=== PATIENT | female | born 1960 | race Caucasian/White ===

== ENCOUNTER 2021-01-18 12:34 | Emergency (ER) | payer MEDICARE, OTHER ==
[~2021-01-18] VITALS: Ht 152.4 cm; Wt 40.8 kg
[2021-01-18] MEDS ORDERED: FLUO20CA42 PO (12:47)
[2021-01-18] MEDS ORDERED: GABA-532 PO (12:47)
[2021-01-18] MEDS ORDERED: ACET-868 PO (12:47)
[2021-01-18] MEDS ORDERED: DOCU-141 PO (12:47)
[2021-01-18] MEDS ORDERED: TRAZ-182 PO (12:47)
[2021-01-18] MEDS ORDERED: OMEP20CA15 PO (12:47)
[2021-01-18] MEDS ORDERED: SENN-261 PO (12:47)
[2021-01-18] MEDS ORDERED: CLON1TAB12 PO (12:47)
[2021-01-18] MEDS ORDERED: MECL-159 PO (12:47)
[2021-01-18] MEDS ORDERED: MAGN400O6 PO (12:47)
[2021-01-18 13:30] LABS: BASOPHILS % (AUTO) 0.6 % (0.0-2.0); EOSINOPHILS % (AUTO) 0.8 % (0.0-6.0); HEMATOCRIT 36 % (33-45); HEMOGLOBIN 11.8 g/dL (11.5-14.8); LYMPHOCYTES # (AUTO) 2.1 /CMM (0.8-4.8); MEAN CORPUSCULAR HGB CONC 33 g/dl (31.0-36.0); MEAN CORPUSCULAR VOLUME 88 fL (82-100); MONOCYTES # (AUTO) 0.2 /CMM (0.1-1.30); MONOCYTES % (AUTO) 6.7 % (2.0-12.0); NEUTROPHILS # (AUTO) 1.3 /CMM (1.8-8.9); NEUTROPHILS % (AUTO) 34.9 % (43.0-81.0); PLATELET COUNT (AUTO) 195 /CMM (150-450); RED BLOOD CELL COUNT(AUTO) 4.06 MIL/uL (4.0-5.2); WHITE BLOOD COUNT (AUTO) 3.6 K/uL (4.3-11.0)
[2021-01-18] MEDS ORDERED: IV NS 0.9% 500 ML BAG IV ONE (13:30)
--- NOTE | 2021-01-18 13:31 | NUR ---
KIET RAMÍREZ FROM [facility] C/O PROGRESSIVE GEN WEAKNESS FOR 1 MONTH. PT AAOX4, VSS. RR EVEN & UNLABORED. DENIES CP, SOB, N/V AT THIS TIME. PT SEEN & EVAL'D BY DR. BYNUM. PLACED ON [employer], SR. WILL CONT TO MONITOR.
[2021-01-18 13:39] LABS: CALCIUM, SERUM 8.5 mg/dL (8.5-10.1); CARBON DIOXIDE 27 mmol/L (21-32); CHLORIDE 96 mmol/L (98-107); CREATININE 0.6 mg/dL (0.6-1.3); GLUCOSE 78 mg/dL (74-106); POTASSIUM 3.9 mmol/L (3.5-5.1); SODIUM SERUM 132 mmol/L (136-145); UREA NITROGEN, BLOOD 9 mg/dL (7-18)
[2021-01-18 13:45] LABS: ALANINE AMINOTRANSFERASE 18 U/L (12-78); ALBUMIN 3.7 g/dL (3.4-5.0); ALKALINE PHOSPHATASE 62 U/L (46-116); ASPARTATE AMINOTRANSFERASE 19 U/L (15-37); BILIRUBIN,DIRECT 0.1 mg/dL (0.0-0.2); BILIRUBIN,TOTAL 0.3 mg/dL (0.2-1.0)
[2021-01-18 14:15] LABS: BILIRUBIN,URINE Negative (NEGATIVE); COLOR,URINE YELLOW (YELLOW); LEUKOCYTE ESTERASE ,URINE Small (NEGATIVE); NITRITE, URINE Negative (NEGATIVE); PH,URINE 8.5 (5.0-8.0); PROTEIN,URINE Negative (NEGATIVE); UGLUCOSE Negative (NEGATIVE); UROBILINOGEN,URINE 0.2 EU/dL (0.2)
[2021-01-18 14:28] LABS: BACTERIA,URINE None seen /HPF (None Seen); RBC,URINE 0-2 /HPF (0-2); SQUAMOUS EPITHELIAL CELL,UR Few /HPF (None Seen)
[2021-01-18 15:16] LABS: EOSINOPHILS % (MANUAL) 2 % (0-4); LYMPHOCYTES % (MANUAL) 55 % (16-48); MONOCYTES % (MANUAL) 2 % (0-11.0); NEUTROPHILS % (MANUAL) 41 (42-76)
--- NOTE | 2021-01-18 15:27 | NUR ---
CALLED [facility] ETA 30 MINS.
[2021-01-18] MEDS ORDERED: CEPH500C2 PO (15:33)
[2021-01-18 16:17] VITALS: BP 114/76
--- NOTE | 2021-01-18 16:17 | NUR ---
Patient discharged to home in stable condition. Written and verbal after care instructions given. Patient verbalizes understanding of instruction.
== END 2021-01-18 16:18 | disposition home or self-care (01) ==
LOC: ER 12:42
DX: R53.83 Other fatigue (principal); R42 Dizziness and giddiness; N39.0 Urinary tract infection, site not specified; J44.9 Chronic obstructive pulmonary disease, unspecified; G62.9 Polyneuropathy, unspecified; F32.9 Major depressive disorder, single episode, unspecified; F41.9 Anxiety disorder, unspecified; Z79.899 Other long term (current) drug therapy
CPT/HCPCS: 36415; 71045; 80048; 80076; 81001; 83880; 84484; 85007; 85025; 85730; 87086; 93005; 99285; J7040

== ENCOUNTER 2021-05-29 14:03 | Inpatient (IN) | payer MEDICARE, OTHER ==
[~2021-05-29] VITALS: Ht 152.4 cm; Wt 37.8 kg
[2021-05-29] VITALS (12 sets, daily range): BP systolic 104–126; BP diastolic 32–82
[~2021-05-29 14:03] MED LIST: ACET-868 PO; CEPH500C2 PO; CLON1TAB12 PO; DOCU-141 PO; FLUO20CA42 PO; GABA-532 PO; MAGN400O6 PO; MECL-159 PO; OMEP20CA15 PO; SENN-261 PO; TRAZ-182 PO
--- NOTE | 2021-05-29 14:38 | NUR ---
THE PATIENT IS TAKEN TO CT
[2021-05-29 15:01] LABS: BASOPHILS % (AUTO) 0.7 % (0.0-2.0); HEMATOCRIT 32 % (33-45); HEMOGLOBIN 10.7 g/dL (11.5-14.8); LYMPHOCYTES # (AUTO) 0.3 K/uL (0.8-4.8); LYMPHOCYTES % (AUTO) 23.6 % (20.0-44.0); MEAN CORPUSCULAR HGB CONC 33 g/dl (31.0-36.0); MEAN CORPUSCULAR VOLUME 90 fL (82-100); MONOCYTES # (AUTO) 0.1 K/uL (0.1-1.30); MONOCYTES % (AUTO) 5.5 % (2.0-12.0); NEUTROPHILS % (AUTO) 70.2 % (43.0-81.0); PLATELET COUNT (AUTO) 191 K/uL (150-450); RED BLOOD CELL COUNT(AUTO) 3.57 MIL/uL (4.0-5.2)
[2021-05-29 15:02] LABS: WHITE BLOOD COUNT (AUTO) 1.4 K/uL (4.3-11.0)
[2021-05-29 15:17] LABS: ALANINE AMINOTRANSFERASE 22 U/L (12-78); ALBUMIN 2.9 g/dL (3.4-5.0); ALKALINE PHOSPHATASE 30 U/L (46-116); ASPARTATE AMINOTRANSFERASE 21 U/L (15-37); BILIRUBIN,DIRECT 0.1 mg/dL (0.0-0.2); BILIRUBIN,TOTAL 0.4 mg/dL (0.2-1.0); CALCIUM, SERUM 8.1 mg/dL (8.5-10.1); CARBON DIOXIDE 24 mmol/L (21-32); CHLORIDE 102 mmol/L (98-107); CREATININE 1.1 mg/dL (0.6-1.3); GLUCOSE 92 mg/dL (74-106); LIPASE 64 U/L (73-393); POTASSIUM 4.2 mmol/L (3.5-5.1); SODIUM SERUM 136 mmol/L (136-145); UREA NITROGEN, BLOOD 24 mg/dL (7-18)
--- NOTE | 2021-05-29 15:49 | NUR ---
71/[address] BECKWITH MADE AWARE WITH NO NEW ORDERS.
[2021-05-29 16:23] LABS: BAND % (MANUAL) 8 % (0.0-5.0); LYMPHOCYTES % (MANUAL) 24 % (16-48); MONOCYTES % (MANUAL) 4 % (0-11.0); NEUTROPHILS % (MANUAL) 64 (42-76)
[2021-05-29] MEDS ORDERED: AZITHROMYCIN 500 MG in IV D5W 250 ML IV ONE (16:30)
[2021-05-29] MEDS ORDERED: IV NS 0.9% 1,000 ML BAG IV ONE ×2 (16:30)
[2021-05-29] MEDS ORDERED: CEFTRIAXONE 1GM BAG (ER ONLY) 50 ML IV ONE ×2 (16:30→17:14)
[2021-05-29] MEDS ORDERED: PETR113O TP (16:38)
[2021-05-29] MEDS ORDERED: MUPI22OI2 TP (16:38)
[2021-05-29] MEDS ORDERED: PARO20TA7 PO (16:38)
[2021-05-29] MEDS ORDERED: CETI-108 PO (16:38)
--- NOTE | 2021-05-29 17:00 | NUR ---
COVID SWAB DONE AND SENT TO THE LAB
--- NOTE | 2021-05-29 17:05 | NUR ---
[facility] - Dr. Ricks paged via exchange
[2021-05-29] MEDS ORDERED: MAG HYDROX/AL HYDROX/SIMETH 30 ML UDC PO PRN (18:00)
[2021-05-29] MEDS ORDERED: NOREPINEPHRINE 8 MG in IV NS 0.9% 242 ML IV PRN ×2 (18:00→21:00)
[2021-05-29] MEDS ORDERED: MAGNESIUM HYDROXIDE 30 ML UDC PO PRN (18:00)
[2021-05-29] MEDS ORDERED: Z GUARD REMEDY 2 OZ OINT TP PRN (18:00)
--- NOTE | 2021-05-29 18:04 | NUR ---
PICC LINE NURSE AT THE BEDSIDE
--- NOTE | 2021-05-29 18:25 | NUR ---
X-RAY TECH AT THE BEDSIDE
[2021-05-29] MEDS ORDERED: VANCOMYCIN 500 MG in IV D5W 100 ML IV SCH (19:00)
--- NOTE | 2021-05-29 19:17 | NUR ---
REPORT GIVEN NURSE MARYAM FOR DULCE MARIA
--- NOTE | 2021-05-29 20:35 | NUR ---
REPORT GIVEN TO RAOUL @ ICU. 256
--- NOTE | 2021-05-29 20:45 | NUR ---
PCR COLLECTED AND SENT TO LAB
--- NOTE | 2021-05-29 21:00 | NUR ---
RN ADMITTING NOTE RECEIVED PATIENT FROM ER VIA GURNEY ACCOMPANIED BY 2 ER STAFF AND TRANSFERRED TO BED 256 VIA 2 PERSON ASSIST. PT IS AO X 4, IN NO SIGN OF ACUTE DISTRESS, RESPIRATIONS EVEN AND UNLABORED, SATURATION AT 95% ON 3L VIA NC. COMPREHENSIVE PHYSICAL ASSESSMENT AND PATIENT CARE DONE. SCABS/REDNESS NOTED AT B EARS NOTED PATIENT SCRATCHING THEM, PHOTOS TAKEN, PLACED IN CHART AND WOUND CONSULT REQUESTED. NOTED IV LINE AT RAC 20G, AND PATO PICC LINE. PATENT AND FLUSHING WELL, NO S/S OF INFECTION OR INFILTRATION NOTED. SAFETY MEASURES AND ISOLATION PRECAUTION IN PLACE, CALL LIGHT WITHIN REACH OF PATIENT, BED ON LOWEST POSITION, SIDE RAILS UP X 2. APPROPRIATE ISOLATION MAINTAINED. WILL CONTINUE MONITOR AND ASSESS THROUGHOUT THE SHIFT. WILL CARRY OUT MD ORDERS ACCORDINGLY. LOAN COLLECTOR MADE AWARE.
--- NOTE | 2021-05-29 21:05 | NUR ---
PATIENT TRANSFERRED UNDER ACLS
[2021-05-29] MEDS: IV NS 0.9% 1,000 ML IV PRN (21:09)
[2021-05-29] MEDS: MEROPENEM 1 G in IV NS 0.9% 100 ML IV SCH (21:15)
[2021-05-29] MEDS: ENOXAPARIN SODIUM 40 MG/0.4 ML DISP.SYRIN SQ SCH (21:24)
[2021-05-29] MEDS: ZOLPIDEM TARTRATE 5 MG TABLET PO PRN (21:44)
[2021-05-29] MEDS: ACETAMINOPHEN 325 MG TABLET PO PRN (22:59)
[2021-05-30] VITALS (98 sets, daily range): BP systolic 35–156; BP diastolic 18–99
[2021-05-30 02:09] LABS: BILIRUBIN,URINE NEGATIVE (NEGATIVE); COLOR,URINE YELLOW (YELLOW); LEUKOCYTE ESTERASE ,URINE NEGATIVE (NEGATIVE); NITRITE, URINE NEGATIVE (NEGATIVE); PH,URINE 6.5 (5.0-8.0); PROTEIN,URINE TRACE mg/dl (NEGATIVE); UGLUCOSE NEGATIVE (NEGATIVE); UROBILINOGEN,URINE 0.2 EU/dL (0.2)
[2021-05-30 04:33] LABS: BASOPHILS % (AUTO) 0.5 % (0.0-2.0); HEMATOCRIT 29 % (33-45); HEMOGLOBIN 9.8 g/dL (11.5-14.8); LYMPHOCYTES # (AUTO) 1.7 K/uL (0.8-4.8); LYMPHOCYTES % (AUTO) 19.8 % (20.0-44.0); MEAN CORPUSCULAR HGB CONC 34 g/dl (31.0-36.0); MEAN CORPUSCULAR VOLUME 90 fL (82-100); MONOCYTES # (AUTO) 0.2 K/uL (0.1-1.30); MONOCYTES % (AUTO) 2.4 % (2.0-12.0); NEUTROPHILS # (AUTO) 6.5 K/uL (1.8-8.9); NEUTROPHILS % (AUTO) 77.3 % (43.0-81.0); PLATELET COUNT (AUTO) 156 K/uL (150-450); RED BLOOD CELL COUNT(AUTO) 3.18 MIL/uL (4.0-5.2); WHITE BLOOD COUNT (AUTO) 8.4 K/uL (4.3-11.0)
[2021-05-30 04:55] LABS: CREATININE 0.5 mg/dL (0.6-1.3); MAGNESIUM 2.1 mg/dL (1.8-2.4); PHOSPHORUS 1.9 mg/dL (2.5-4.9); POTASSIUM 3.8 mmol/L (3.5-5.1)
[2021-05-30 05:14] LABS: THYROID STIMULATING HORMONE 0.348 uIU/mL (0.358-3.74)
[2021-05-30 06:22] LABS: BACTERIA,URINE None seen /HPF (None Seen); RBC,URINE 0-2 /HPF (0-2); SQUAMOUS EPITHELIAL CELL,UR Few /HPF (None Seen); WBC,URINE 0-2 /HPF (0-3)
[2021-05-30 06:23] LABS: MUCUS,URINE Few /LPF (None Seen)
[2021-05-30] MEDS: NOREPINEPHRINE 8 MG in IV NS 0.9% 242 ML IV PRN ×2 (06:25→12:14)
[2021-05-30] MEDS: ACETAMINOPHEN 325 MG TABLET PO PRN ×3 (06:49→20:06)
--- NOTE | 2021-05-30 07:30 | NUR ---
OPENING NOTE: REPORT RECEIVED FROM RAOUL HUTTON. PT ALERT OX3, USES BED VÁSQUEZ. LEVOPHED INFUSING PER MD ORDERS. PT CHECKED ON HOURLY AND PRN BY NURSING STAFF.
--- NOTE | 2021-05-30 07:59 | NUR ---
WOUND CARE CONSULT: REVIEWED CHART, NURSING DOCUMENTATION AND PHOTOS WHICH INDICATE DRY SCABS/LESIONS TO BILATERAL EARS, PRESENT ON ADMISSION. DEFER TO PMD FOR LESIONS. PER RN, PT IS UNCOOPERATIVE AT TIMES AND SCRATCHES AT HER EARS. WILL SEE PRN. CURRENT HILDA SCORE IS 19.
[2021-05-30] MEDS ORDERED: PANTOPRAZOLE 40 MG VIAL IV SCH (09:00)
[2021-05-30] MEDS: MEROPENEM 1 G in IV NS 0.9% 100 ML IV SCH ×2 (09:03→21:00)
[2021-05-30] MEDS: GABAPENTIN 100 MG CAPSULE PO SCH ×2 (09:04→17:09)
[2021-05-30] MEDS: PAROXETINE HCL 20 MG TABLET PO SCH (09:04)
[2021-05-30] MEDS ORDERED: K PHOS NEUTRAL 250 MG TABLET PO ONE (11:00)
[2021-05-30] MEDS ORDERED: VANCOMYCIN 500 MG in IV D5W 100 ML IV SCH (12:00)
[2021-05-30] MEDS: IV NS 0.9% 1,000 ML IV PRN (12:39)
[2021-05-30] MEDS: ONDANSETRON HCL/PF 4 MG/2 ML VIAL IVP PRN (13:28)
[2021-05-30] MEDS ORDERED: clonazePAM 1 MG TABLET PO SCH (13:30)
[2021-05-30] MEDS ORDERED: clonazePAM 1 MG TABLET PO PRN (13:30)
--- NOTE | 2021-05-30 18:04 | NUR ---
END OF SHIFT NOTE: PT USED THE BEDPAN SEVERAL TIMES THIS SHIFT. 3 SMALL FORMED BMS, URINATED X7. PT REFUSED TO EAT MORE THAN A FEW BITES OF EACH MEAL, AFTER EATING PT STATED TO RN THAT SHE ATE WAY TOO MUCH AND WILL PROBABLY GAIN 10 POUNDS. PT STATED THAT SHE HAS AN EATING DISORDER AND USUALLY BINGES HER MEALS THAN HAS TO BRUSH HER TEETH TO GET THE FOOD TASTE OUT OF HER MOUTH. PT BRUSHED HER TEETH 3 TIMES DURING THIS SHIFT. AT LUNCH PT ATE 1 PACKAGE OF COOPER CRACKERS THEN STATED SHE ATE TOO MUCH AND HAD BINGED. PT ATE NONE OF HER LUNCH TRAY FOOD. LEVOPHED TITRATED DOWN TO 0.06 MCG/KG/MIN THIS SHIFT. PT CHECKED ON HOURLY AND PRN BY NURSING STAFF.
--- NOTE | 2021-05-30 19:00 | NUR ---
RN NOTE RECEIVED PATIENT IN BED, AO X 4, IN NO S/SX OF ACUTE DISTRESS AT THIS TIME. PT KEEPS REMOVING NASAL CANNULA, PREVIOUSLY ON 2LPM, SATURATION 95% ON ROOM AIR, SR ON THE MONITOR, HR IS 87. NOTED IV SITE AT R AC 20G, AND PATO PICC LINE, ALL HUBS PATENT AND FLUSHING WELL, NO S/S OF INFECTION, PICC LINE DRESSING SLIGHTY SATURATED WITH BLOOD. PATIENT IS CONTINENT AND USES BEDPAN. SAFETY MEASURES IMPLEMENTED. PATIENT BED ALARM IS ON. HEAD OF BED ELEVATED. BED IS LOCKED, IN LOWEST POSITION AND SIDE RAILS UP. CALL LIGHT WITHIN REACH OF THE PATIENT. WILL CONTINUE TO MONITOR AND REASSESS FOR ANY CHANGES. Addendum: 05/30/21 at 2143 by RAOUL ARNETT RN IV FLUID OF NS INFUSING AT 75 ML/HR, AND LEVOPHED DRIP CURRENTLY AT 0.06 MCG/KG/MIN.
[2021-05-30] MEDS: clonazePAM 1 MG TABLET PO SCH (21:01)
[2021-05-30] MEDS: ENOXAPARIN SODIUM 40 MG/0.4 ML DISP.SYRIN SQ SCH (21:01)
[2021-05-30] MEDS: ZOLPIDEM TARTRATE 5 MG TABLET PO PRN (23:01)
[2021-05-31] VITALS (60 sets, daily range): BP systolic 86–153; BP diastolic 55–102
[2021-05-31] MEDS: IV NS 0.9% 1,000 ML IV PRN ×2 (03:04→17:15)
--- NOTE | 2021-05-31 07:30 | NUR ---
OPENING NOTE: REPORT RECEIVED FROM RAOUL HUTTON. PER REPORT LEVOPHED STOPPED AT 0630 THIS AM. NO CHANGE IN PATIENT FROM YESTERDAY. PT ALERT OX3. USES BED VÁSQUEZ FREQUENTLY . PT WILL USE COMMODE TODAY. PT CHECKED ON HOURLY AND PRN BY NURSING STAFF.
[2021-05-31] MEDS: GABAPENTIN 100 MG CAPSULE PO SCH ×2 (08:43→17:15)
[2021-05-31] MEDS: PANTOPRAZOLE 40 MG TABLET.DR PO SCH (08:43)
[2021-05-31] MEDS: MEROPENEM 1 G in IV NS 0.9% 100 ML IV SCH ×2 (08:43→20:24)
[2021-05-31] MEDS: ONDANSETRON HCL/PF 4 MG/2 ML VIAL IVP PRN (08:43)
[2021-05-31] MEDS: PAROXETINE HCL 20 MG TABLET PO SCH (08:44)
[2021-05-31] MEDS: clonazePAM 1 MG TABLET PO SCH ×2 (08:44→17:15)
[2021-05-31] MEDS: ACETAMINOPHEN 325 MG TABLET PO PRN (08:44)
[2021-05-31 09:58] LABS: CALCIUM, SERUM 7.4 mg/dL (8.5-10.1); CREATININE 0.4 mg/dL (0.6-1.3); MAGNESIUM 1.9 mg/dL (1.8-2.4); PHOSPHORUS 2.2 mg/dL (2.5-4.9); POTASSIUM 3.2 mmol/L (3.5-5.1)
[2021-05-31] MEDS ORDERED: K PHOS NEUTRAL 250 MG TABLET PO ONE (16:00)
[2021-05-31] MEDS: POTASSIUM CHLORIDE 20 MEQ TAB.PRT.SR PO SCH ×2 (17:15→17:16)
--- NOTE | 2021-05-31 18:30 | NUR ---
END OF SHIFT: PT WAS UP TO THE COMMODE FREQUENTLY. PT ATE ONLY BITES OF FOOD TODAY, MOSTLY CRACKERS. PT STATED SHE ATE MORE FOOD BUT RN WOULD FIND THE FOOD IN HER BED. LEVOPHED CONTINUES TO BE OFF. PT HAS TRANSFER ORDERS TO MED/SURG, NO BED OF THIS TIME. PT CHECKED ON HOURLY AND PRN BY NURSING STAFF.
[2021-05-31] MEDS: ZOLPIDEM TARTRATE 5 MG TABLET PO PRN (20:24)
[2021-05-31] MEDS: ENOXAPARIN SODIUM 40 MG/0.4 ML DISP.SYRIN SQ SCH (20:28)
[2021-06-01] VITALS (14 sets, daily range): BP systolic 102–129; BP diastolic 51–85
--- NOTE | 2021-06-01 03:36 | NUR ---
RN notes: beginning of shift Received patient in bed resting comfortably in bed watching tv. Alert and oriented, verbally able to verbally communicate needs. On room air tolerating well with no distress noted. Breathing even and unlabored. Ambulatory with assist. Continent of bowel and bladder function. Vital signs wnl. Will continue to monitor.
--- NOTE | 2021-06-01 03:44 | NUR ---
RN notes: end of shift No significant change of condition. Bowel movement x 2. Vital signs wnl. Ambien given as requested by the patient. Kept clean and comfortable. Will endorse to next shift for continuity of care.
--- NOTE | 2021-06-01 05:40 | NUR ---
RN ms opening notes Received Pt from ICU nurse ANNI Dodson. Pt arrived at the unit with a gurney. Pt is alert and orientedX4. Respiration is normal in room air. VS is stable. no S/S of distress. No SOB. Pt is able to ambulate with a steady gait with assist. PICC line at PATO is clean, intact and dry. RAC# 20 is clean, intact and flushes well. Reorient Pt to the room and the use of call light. Pt verbalized understanding. safety precautions is maintained. Bed at low position, brakes locked, side rails upX3, call light is within reach. Will endorse to morning nurse for DULCE MARIA.
[2021-06-01 05:59] LABS: BASOPHILS % (AUTO) 0.1 % (0.0-2.0); EOSINOPHILS % (AUTO) 0.1 % (0.0-6.0); HEMATOCRIT 30 % (33-45); HEMOGLOBIN 10.4 g/dL (11.5-14.8); LYMPHOCYTES # (AUTO) 1.1 K/uL (0.8-4.8); LYMPHOCYTES % (AUTO) 9.2 % (20.0-44.0); MEAN CORPUSCULAR HGB CONC 34 g/dl (31.0-36.0); MEAN CORPUSCULAR VOLUME 88 fL (82-100); MONOCYTES # (AUTO) 0.2 K/uL (0.1-1.30); MONOCYTES % (AUTO) 1.6 % (2.0-12.0); NEUTROPHILS # (AUTO) 10.7 K/uL (1.8-8.9); PLATELET COUNT (AUTO) 185 K/uL (150-450); RED BLOOD CELL COUNT(AUTO) 3.45 MIL/uL (4.0-5.2)
--- NOTE | 2021-06-01 06:05 | NUR ---
RN notes: transferred to [facility] in stable condition. Endorsement given to ANNI Rob
[2021-06-01 06:10] LABS: ALBUMIN 2.1 g/dL (3.4-5.0); BILIRUBIN,TOTAL 0.3 mg/dL (0.2-1.0); CALCIUM, SERUM 7.5 mg/dL (8.5-10.1); CREATININE 0.5 mg/dL (0.6-1.3); MAGNESIUM 1.9 mg/dL (1.8-2.4); PHOSPHORUS 2.1 mg/dL (2.5-4.9); POTASSIUM 3.3 mmol/L (3.5-5.1); TOTAL PROTEIN, SERUM 5.6 g/dL (6.4-8.2)
--- NOTE | 2021-06-01 07:50 | NUR ---
RN OPENING NOTE- PT IS ALERT ORIENTED TO PERSON PLACE TIME PURPOSE. PICC LINE TO PATO. PT DENIES PAIN AT PRESENT. MAKES NEEDS KNOWN. VS STABLE. SATURATION 98% ROOM AIR. NO DISTRESS. REQUESTED FOOD AND COFFEE, SIDE RAILS UP, BED LOCKED, CALL LIGHT CLOSE. ASSIST AND MONITOR
[2021-06-01] MEDS: PAROXETINE HCL 20 MG TABLET PO SCH (08:25)
[2021-06-01] MEDS: PANTOPRAZOLE 40 MG TABLET.DR PO SCH (08:25)
[2021-06-01] MEDS: GABAPENTIN 100 MG CAPSULE PO SCH ×2 (08:25→16:16)
[2021-06-01] MEDS: clonazePAM 1 MG TABLET PO SCH ×2 (08:25→16:16)
[2021-06-01] MEDS: MEROPENEM 1 G in IV NS 0.9% 100 ML IV SCH ×2 (08:51→21:44)
[2021-06-01] MEDS ORDERED: POTASSIUM CHLORIDE 20 MEQ TAB.PRT.SR PO SCH (10:00)
[2021-06-01 12:20] LABS: LYMPHOCYTES % (MANUAL) 10 % (16-48); METAMYELOCYTES % 1 % (0-0); MONOCYTES % (MANUAL) 2 % (0-11.0); MYELOCYTES % 1 % (0-0); NEUTROPHILS % (MANUAL) 86 (42-76)
[2021-06-01] MEDS ORDERED: K PHOS NEUTRAL 250 MG TABLET PO ONE (15:30)
[2021-06-01] MEDS ORDERED: IV NS 0.9% 250 ML IV ONE (15:43)
[2021-06-01] MEDS ORDERED: IOHEXOL-300 100 ML VIAL IV ONE (15:43)
[2021-06-01] MEDS ORDERED: CT SWABBABLE VALVE TRANS SET 1 EA INFUS.SET MC ONE (15:43)
--- NOTE | 2021-06-01 18:56 | NUR ---
RN CLOSING NOTE- PT IS ALERT ORIENTED TO PERSON PLACE TIME PURPOSE. PICC LINE TO PATO. PT DENIES PAIN AT PRESENT. MAKES NEEDS KNOWN. VS STABLE. SATURATION 98% ROOM AIR. NO DISTRESS. CT ABD COMPLETED, SIDE RAILS UP, BED LOCKED, CALL LIGHT CLOSE. ASSIST AND MONITOR
[2021-06-01] MEDS: ZOLPIDEM TARTRATE 5 MG TABLET PO PRN (21:44)
[2021-06-01] MEDS: ENOXAPARIN SODIUM 40 MG/0.4 ML DISP.SYRIN SQ SCH (21:46)
--- NOTE | 2021-06-02 02:00 | NUR ---
Patient refusing to be reconnected to IV fluids at this time, but tolerated IV abx well.
--- NOTE | 2021-06-02 04:55 | NUR ---
Patient back and forth to bathroom feeling "sick" to her stomach but unable to produce stool specimen -urine only.
--- NOTE | 2021-06-02 04:57 | NUR ---
Patient has been A&Ox4. Sleeping intermittently though easy to wake. Reports feeling fatigued though steady on feet. Denies SOB, dizziness, lightheadedness. Tolerating IV ABX well. Still refusing to be reattached to IVF. No signs of distress.
[2021-06-02] MEDS: ACETAMINOPHEN 325 MG TABLET PO PRN (06:16)
--- NOTE | 2021-06-02 06:18 | NUR ---
patient had small formed bm
[2021-06-02] MEDS: PANTOPRAZOLE 40 MG TABLET.DR PO SCH (06:30)
--- NOTE | 2021-06-02 07:30 | NUR ---
PT RECEIVED RESTING COMFORTABLY IN BED. NO S/S OR C/O PAIN OR DISTRESS NOTED. SIDE RAILS UP X2, CALL LIGHT LEFT WITHIN REACH. WILL CONTINUE PLAN OF CARE.
[2021-06-02 07:33] LABS: CALCIUM, SERUM 7.5 mg/dL (8.5-10.1); CREATININE 0.4 mg/dL (0.6-1.3); MAGNESIUM 1.7 mg/dL (1.8-2.4); PHOSPHORUS 2.5 mg/dL (2.5-4.9); POTASSIUM 3.2 mmol/L (3.5-5.1)
[2021-06-02 07:51] LABS: BASOPHILS % (AUTO) 0.2 % (0.0-2.0); EOSINOPHILS % (AUTO) 0.6 % (0.0-6.0); HEMATOCRIT 27 % (33-45); HEMOGLOBIN 9.4 g/dL (11.5-14.8); LYMPHOCYTES # (AUTO) 1.6 K/uL (0.8-4.8); LYMPHOCYTES % (AUTO) 18.7 % (20.0-44.0); MEAN CORPUSCULAR HGB CONC 35 g/dl (31.0-36.0); MEAN CORPUSCULAR VOLUME 87 fL (82-100); MONOCYTES # (AUTO) 0.5 K/uL (0.1-1.30); MONOCYTES % (AUTO) 5.5 % (2.0-12.0); NEUTROPHILS # (AUTO) 6.6 K/uL (1.8-8.9); PLATELET COUNT (AUTO) 174 K/uL (150-450); RED BLOOD CELL COUNT(AUTO) 3.06 MIL/uL (4.0-5.2); WHITE BLOOD COUNT (AUTO) 8.8 K/uL (4.3-11.0)
[2021-06-02] MEDS: clonazePAM 1 MG TABLET PO SCH ×2 (08:27→17:14)
[2021-06-02] MEDS: PAROXETINE HCL 20 MG TABLET PO SCH (08:27)
[2021-06-02] MEDS: GABAPENTIN 100 MG CAPSULE PO SCH ×2 (08:27→17:15)
[2021-06-02] MEDS: MEROPENEM 1 G in IV NS 0.9% 100 ML IV SCH (08:30)
[2021-06-02 08:34] VITALS: BP 109/52
[2021-06-02] MEDS: Magnesium 1GM/D5W 100ML PREMIX 100 ML IV SCH ×2 (11:00→13:15)
[2021-06-02] MEDS: POTASSIUM CHLORIDE 20 MEQ TAB.PRT.SR PO SCH ×2 (11:00→13:15)
[2021-06-02] MEDS ORDERED: CEFTRIAXONE 2 G in IV D5W 100 ML IV SCH ×2 (11:00→21:00)
[2021-06-02 16:00] VITALS: BP 116/76
--- NOTE | 2021-06-02 16:30 | NUR ---
PT REFUSED IVF AT THIS TIME. NURSING TEACHING PERFORMED ON THE IMPORTANCE OF MEDICATION COMPLIANCE BUT PT CONTINUES TO REFUSE. WILL CONTINUE TO MONITOR.
--- NOTE | 2021-06-02 18:10 | NUR ---
CHANGE OF SHIFT REPORT PT RESTING COMFORTABLY IN BED. NO S/S OR C/O PAIN OR DISTRESS NOTED. SIDE RAILS UP X2, CALL LIGHT LEFT WITHIN REACH. PT KEPT CLEAN, DRY, AND COMFORTABLE. NO SIGNIFICANT CHANGE SINCE PREVIOUS SHIFT WILL GIVE REPORT TO DIANA HUTTON.
--- NOTE | 2021-06-02 19:00 | NUR ---
MS RN OPENING NOTE RECEIVED PT IN BED, RESTING. A/O X4. PT IS ON ROOM AIR, NO SOB OR RESPIRATORY DISTRESS NOTED, NO C/O PAIN. RESPIRATIONS EVEN AND UNLABORED, IV ACCESS NOTED IN RIGHT AC G#20, INTACT, PATENT AND FLUSHING WELL. FALL AND SAFETY MEASURES IN PLACE AND MAINTAINED AT ALL TIMES. BED ALARM ON, BED IN LOW AND LOCKED POSITION, HOB ELEVATED TO SEMI FOWLERS POSITION, CALL LIGHT AND TABLE WITHIN REACH, SIDE RAILS UP X2. WILL CONTINUE TO MONITOR.
[2021-06-02 20:27] VITALS: BP 123/82
[2021-06-02] MEDS: ENOXAPARIN SODIUM 40 MG/0.4 ML DISP.SYRIN SQ SCH (20:41)
[2021-06-02] MEDS: ZOLPIDEM TARTRATE 5 MG TABLET PO PRN (20:56)
--- NOTE | 2021-06-02 20:56 | NUR ---
PT C/O INABILITY TO SLEEP.PER PT REQUEST AMBIEN 5MG PO HS PRN ADMINISTERED AT THIS TIME PER ORDER. WILL CONTINUE TO MONITOR.
--- NOTE | 2021-06-03 07:38 | NUR ---
RN OPENING NOTES Patient seen comfortably lying in bed, no apparent distress noted, respirations even and unlabored, no SOB, denies any pain or discomfort at this time. Call light left within reach, safety precautions in place, brakes locked, side rails up X 2, will monitor closely for any changes.
[2021-06-03 09:00] VITALS: BP 102/50
[2021-06-03 10:20] LABS: BASOPHILS % (AUTO) 0.2 % (0.0-2.0); EOSINOPHILS % (AUTO) 0.2 % (0.0-6.0); HEMATOCRIT 27 % (33-45); HEMOGLOBIN 9.5 g/dL (11.5-14.8); LYMPHOCYTES # (AUTO) 1.4 K/uL (0.8-4.8); LYMPHOCYTES % (AUTO) 22.6 % (20.0-44.0); MEAN CORPUSCULAR HGB CONC 35 g/dl (31.0-36.0); MEAN CORPUSCULAR VOLUME 87 fL (82-100); MONOCYTES # (AUTO) 0.7 K/uL (0.1-1.30); PLATELET COUNT (AUTO) 198 K/uL (150-450); RED BLOOD CELL COUNT(AUTO) 3.09 MIL/uL (4.0-5.2)
[2021-06-03] MEDS: PANTOPRAZOLE 40 MG TABLET.DR PO SCH (10:20)
[2021-06-03] MEDS: GABAPENTIN 100 MG CAPSULE PO SCH ×2 (10:20→16:54)
[2021-06-03] MEDS: clonazePAM 1 MG TABLET PO SCH ×2 (10:20→16:54)
[2021-06-03] MEDS: PAROXETINE HCL 20 MG TABLET PO SCH (10:20)
[2021-06-03 10:30] LABS: ALBUMIN 1.7 g/dL (3.4-5.0); BILIRUBIN,TOTAL 0.2 mg/dL (0.2-1.0); CALCIUM, SERUM 7.3 mg/dL (8.5-10.1); CREATININE 0.3 mg/dL (0.6-1.3); PHOSPHORUS 2.1 mg/dL (2.5-4.9); POTASSIUM 3.3 mmol/L (3.5-5.1); TOTAL PROTEIN, SERUM 5.2 g/dL (6.4-8.2)
[2021-06-03] MEDS: ACETAMINOPHEN 325 MG TABLET PO PRN (11:49)
[2021-06-03] MEDS ORDERED: K PHOS NEUTRAL 250 MG TABLET PO ONE (15:30)
--- NOTE | 2021-06-03 18:29 | NUR ---
Patient to be discharged today, no apparent distress noted, denies any pain or discomfort. Patient made aware of the situation, she signed all discharge paperworks, all belongings taken, inventory list signed by patient. Health teaching provided, verbalized understanding and gratitude. Skin intact, warm to touch, no pallor or cyanosis noted. Bilateral ears photo was taken and filed in her chart. Peripheral IV and PICC line removed and covered with dry dressing. Name wristband removed prior to discharge. Patient left unit at 1828, stable condition, surgical facial mask and exit care folder with paperworks handed to [facility] transportation staffs.
== END 2021-06-03 18:30 | DRG 871 ==
LOC: ER 14:09 → ICU 20:44 → MED 06-01 05:34
PROVIDERS: ATTEND Student in an Organized Health Care Education/Training Program
PROC: 02HV33Z Insertion of Infusion Device into Superior Vena Cava, Percutaneous Approach (ICD-10-PCS; principal; 2021-05-29)
PROC: B548ZZA Ultrasonography of Superior Vena Cava, Guidance (ICD-10-PCS; 2021-05-29)
DX: A41.9 Sepsis, unspecified organism (principal); J18.9 Pneumonia, unspecified organism; J96.01 Acute respiratory failure with hypoxia; N17.0 Acute kidney failure with tubular necrosis; R65.21 Severe sepsis with septic shock; E44.0 Moderate protein-calorie malnutrition; J44.0 Chronic obstructive pulmonary disease with (acute) lower respiratory infection; F50.2 Bulimia nervosa; Z68.1 Body mass index [BMI] 19.9 or less, adult; E87.2 Acidosis; E22.2 Syndrome of inappropriate secretion of antidiuretic hormone; R18.8 Other ascites; J90 Pleural effusion, not elsewhere classified; F32.A Depression, unspecified; F41.9 Anxiety disorder, unspecified; Z20.822 Contact with and (suspected) exposure to COVID-19; Z79.899 Other long term (current) drug therapy; G62.9 Polyneuropathy, unspecified; D64.9 Anemia, unspecified; R79.89 Other specified abnormal findings of blood chemistry; Z86.59 Personal history of other mental and behavioral disorders; E86.1 Hypovolemia; E83.42 Hypomagnesemia; E87.6 Hypokalemia; I70.8 Atherosclerosis of other arteries; Z87.891 Personal history of nicotine dependence; Y95 Nosocomial condition
CPT/HCPCS: 36415; 71045-TC; 80048-TC; 80053-TC; 80061-TC; 80076-TC; 80202-TC; 81001; 83605-TC; 83690-TC; 83735-TC; 84100-TC; 84145; 84443-TC; 84484-TC; 85025-TC; 87040-TC; 87081-TC; 87086-TC; 93307-TC; C9113; C9803; G0378; J0456; J0696; J1650; J2185; J2405; J3370; J3475; J7030; J7050; J7060; Q9967; U0003

== ENCOUNTER 2023-07-27 10:17 | Emergency (ER) | payer MEDICARE, OTHER ==
[~2023-07-27] VITALS: Ht 157.5 cm; Wt 40.8 kg
[~2023-07-27 10:17] MED LIST changes: -CEPH500C2 PO; +CETI-108 PO; -FLUO20CA42 PO; +MUPI22OI2 TP; +PARO20TA7 PO; +PETR113O TP
[2023-07-27 11:09] LABS: BASOPHILS % (AUTO) 1.1 % (0.0-2.0); EOSINOPHILS % (AUTO) 1.4 % (0.0-6.0); HEMATOCRIT 27 % (33-45); HEMOGLOBIN 8.7 g/dL (11.5-14.8); LYMPHOCYTES # (AUTO) 1.5 K/uL (0.8-4.8); LYMPHOCYTES % (AUTO) 49.4 % (20.0-44.0); MEAN CORPUSCULAR HEMOGLOBIN 24 PG (26.0-33.0); MEAN CORPUSCULAR HGB CONC 33 g/dl (31.0-36.0); MEAN CORPUSCULAR VOLUME 74 fL (82-100); MONOCYTES # (AUTO) 0.2 K/uL (0.1-1.30); MONOCYTES % (AUTO) 7.2 % (2.0-12.0); NEUTROPHILS # (AUTO) 1.2 K/uL (1.8-8.9); NEUTROPHILS % (AUTO) 40.9 % (43.0-81.0); PLATELET COUNT (AUTO) 182 K/uL (150-450); RED BLOOD CELL COUNT(AUTO) 3.62 MIL/uL (4.0-5.2); RED CELL DISTRIBUTION WIDTH 16.5 % (11.5-15.0)
[2023-07-27 11:52] LABS: CALCIUM, SERUM 8.8 mg/dL (8.5-10.1); CREATININE 0.6 mg/dL (0.6-1.3); POTASSIUM 4.1 mmol/L (3.5-5.1)
[2023-07-27 11:58] LABS: ALBUMIN 3.3 g/dL (3.4-5.0); BILIRUBIN,DIRECT 0.1 mg/dL (0.0-0.2); BILIRUBIN,TOTAL 0.2 mg/dL (0.2-1.0); INR 1.06 (0.91-1.10); PARTIAL THROMBOPLASTIN TIME 26.9 SEC (24.3-34.3); PROTHROMBIN TIME 11.2 SECS (9.2-11.1); TOTAL PROTEIN, SERUM 7.4 g/dL (6.4-8.2)
[2023-07-27 15:28] VITALS: BP 96/73; TEMP 98.2; O2SAT 98
== END 2023-07-27 15:29 ==
LOC: ER 10:20
DX: R04.0 Epistaxis (principal); J44.9 Chronic obstructive pulmonary disease, unspecified; F41.9 Anxiety disorder, unspecified; F32.A Depression, unspecified; Z79.899 Other long term (current) drug therapy
CPT/HCPCS: 36415; 71045-TC; 80048-TC; 80076-TC; 83690-TC; 85025-TC; 85730-TC